=== PATIENT | male | born 1980 | race Caucasian/White ===

== ENCOUNTER 2021-05-03 14:48 | Emergency (ER) | payer SELFPAY ==
--- NOTE | ~2021-05-03 | XR_ITS ---
EXAMINATION: XR chest 2V DATE: 05/03/2021 15:17 INDICATION: Cough and chest pain TECHNIQUE: frontal and lateral views of the chest were obtained. COMPARISON: None FINDINGS: A few subcentimeter nodular opacities in the right mid to upper lung zone, not definitively calcified . No pulmonary edema, pleural effusion or pneumothorax. The cardiomediastinal silhouette is normal. V isualized bones and soft tissues are unremarkable. IMPRESSION: 1. A few small nodular opacities at the right mid to upper lung zone. Given the provided history of h eavy smoking would consider follow-up chest CT for further evaluation. Reviewed, dictated and finalized at location A. SCIENCES MANAGER IMPRESSION: 1. A few small nodular opacities at the right mid to upper lung zone. Given the provided history of heavy smoking would consider follow-up chest CT for furthe r evaluation.
[2021-05-03 15:00] VITALS: BP 143/91; PULSE 72; RESP 18; TEMP 36.6; O2SAT 100
--- NOTE | 2021-05-03 15:00 | ECG_ITS ---
Measurements Intervals [place] Rate: 76 P: 68 NC: 166 QRS: 12 QRSD: 102 T: 30 QT: 371 QTc: 418 Interpretive Statements SINUS RHYTHM MINIMAL Q WAVES- HIGH LATERAL LEADS BORDERLINE ECG Electronically Signed On 05-03-2021 15:10:56 SOLIDS CONTROL TECHNICIAN by Tyler Gutierrez D.O.
--- NOTE | 2021-05-03 15:20 | ED.CHESTPAIN ---
HPI - Chest Pain General Chief Complaint: Chest Pain Stated Complaint: mid area chest pain Time Seen by Provider: 05/03/21 15:10 Source: patient, family and RN notes reviewed Mode of arrival: ambulatory Limitations: no limitations History of Present Illness HPI narrative: Jef is a 41-year-old male patient who ambulated into the [facility] accompanied by his family. Patient states he had an onset of chest pain rating it 5/ 10 midmorning today. Patient states the pain is crushing. Patient states he is always shortof breath and is not experiencing any increase in shortness of breath. patient smokes 1.5 packs/day. Patient states he has pain going down his left arm at times. Patient currently has no pain in his left arm. Patient has had episodes of dizziness at least weekly. Patient has a history of chest pain. Patient also states that he he has heartburn almost daily and takes an [id number] medicine for that he is not sure what the medication is. Patient states he is on a baby aspirin 81 mg daily. Patient states he was put on that years ago for his chest pain/irregular heart rhythm.. Patient has never followed up for further evaluation of the chest pain. Patient has been seen in [facility] as before for chest pain and did not follow-up with her primary care afterwards for evaluation. Patient does have a history of hypertension and should be on hypertension medicationns but he has not followed up. Patient also states he has a history of anxiety. Patient did start at the ER. patient is having increased stress in his life. Patient states he is going through a divorce right now and has increased stress. Related Data Home Medications Medication Instructions Recorded Confirmed No Home Medications 05/03/21 05/03/21 Allergies Allergy/AdvReac Type Severity Reaction Status Date / Time No Known Allergies Allergy Mild Verified 05/03/21 15:50 Review of Systems Review of Systems: CONSTITUTIONAL: Denies body aches, fever, chills, or sweats. EYES: Denies visual changes, redness, or discharge. ENT: Denies rhinorrhea, congestion, sore throat, or otalgia. CARDIOVASCULAR: + chest pain, palpitations, denies edema. RESPIRATORY: Denies cough or dyspnea+ SOB GASTROINTESTINAL: Denies abdominal pain, nausea, vomiting, or diarrhea. GENITOURINARY: Denies dysuria or hematuria. SKIN: Denies rash, itching, or wounds. MUSCULOSKELETAL: Denies back pain, joint pain, or myalgia. NEUROLOGIC: Denies headache, numbness, tingling, or weakness. PSYCH: Denies depression + anxiety. All systems reviewed & are unremarkable except as noted in HPI and below PMFSH Comments At time of signature, I have reviewed and agree with nursing past medical, surgical, social and family history unless otherwise noted. Please see nursing chart for further information. There is no relevant family history pertinent to the presenting complaint Exam Narrative: GENERAL: Well-appearing, over -nourished, and in no acute distress. HEAD: Normocephalic, atraumatic. EYES: EOMI. No redness or drainage. Conjunctivae normal. ENT: Mucous membranes pink and moist. Nares clear. No rhinorrhea. NECK: Normal AROM. Supple. No lymphadenopathy. CHEST: No respiratory distress. Clear to auscultation. HEART: Regular rate and rhythm. No murmur appreciated. Normal peripheral pulses. ABDOMEN: Soft, nontender, nondistended, normal active bowel sounds. MUSCULOSKELETAL: No bony tenderness, bilateral shoulder exam unremarkable, Normal ROM. EXTREMITIES: Normal range of motion. No edema. SKIN: Warm, dry, no rash. Capillary refill normal. Normal skin turgor. NEURO: No focal deficits. Alert and oriented x3. Gait steady. PSYCH: Normal affect. No signs of depression, appears anxious. Course Vital Signs Vital signs: Vital Signs Temperature 36.6 C 05/03/21 15:00 Pulse Rate 72 05/03/21 15:00 Respiratory Rate 18 05/03/21 15:00 Blood Pressure 143/91 H 05/03/21 15:00 Pul
[2021-05-03] MEDS: ASPIRIN 81 MG CHEWABLE TABLET 243 MG PO (15:23)
== END 2021-05-03 15:47 | disposition short-term general hospital (02) ==
PROVIDERS: Emergency Provider Nurse Practitioner Family
DX: R07.89 Other chest pain (principal); K21.9 Gastro-esophageal reflux disease without esophagitis
CPT/HCPCS: 71046; 93005; 99213; A9270; G0463

== ENCOUNTER 2021-05-03 16:04 | Emergency (ER) | payer SELFPAY ==
--- NOTE | ~2021-05-03 | XR_ITS ---
EXAMINATION: XR chest 2V DATE: 05/03/2021 17:03 INDICATION: Chest pain TECHNIQUE: PA and lateral views of the chest were obtained. COMPARISON: Chest radiograph dated 05/03/2021 at 3:15 PM FINDINGS: Residual approximate 7 mm relatively well-defined nodular opacity at the lateral right midlung zone m ost likely sequela of old granulomatous disease. The additional small nodular opacity seen on the adin or radiograph are no longer visualized and likely represented superimposition of rib and vascular sha dows. No new airspace opacities, pulmonary edema, pleural effusion or pneumothorax. The cardiomediast inal silhouette is normal. Visualized bones and soft tissues are unremarkable. IMPRESSION: 1. No acute cardiopulmonary disease. 2. Persistent 7 mm nodular opacity at the lateral right midlung zone which given the conspicuity rela tive to size is likely calcified sequela of old granulomatous disease. Reviewed, dictated and finalized at location A. ER MIXER IMPRESSION: 1. No acute cardiopulmonary disease. 2. Persistent 7 mm nodular opacity at the lateral right midlung zone which give n the conspicuity relative to size is likely calcified sequela of old granuloma tous disease.
[2021-05-03 16:20] VITALS: BP 155/77; PULSE 71; RESP 16; TEMP 36.4; O2SAT 100
--- NOTE | 2021-05-03 16:20 | ECG_ITS ---
Measurements Intervals [place] Rate: 73 P: 71 IN: 165 QRS: 14 QRSD: 100 T: 47 QT: 379 QTc: 419 Interpretive Statements SINUS RHYTHM BASELINE ARTIFACT- I, II, AVR NORMAL ECG Electronically Signed On 05-03-2021 20:06:58 LICENSED REACTOR OPERATOR by Tyler Gutierrez D.O.
[2021-05-03 16:59] LABS: Basophils Absolute Auto 0.1 K/mm3 (0.0-0.1); Basophils Percent Auto 0.5 % (0.2-1.2); Eosinophils Absolute Auto 0.2 K/mm3 (0-0.3); Eosinophils Percent Auto 1.6 % (0-4.4); Hematocrit 47.7 % (42.0-52.0); Immature Granulocyte Absolute 0.03 K/mm3 (0.00-0.031); Immature Granulocyte Percent A 0.3 % (0-0.5); Lymphocytes Absolute Auto 2.94 K/mm3 (0.9-3.2); Lymphocytes Percent Auto 31.6 % (18.3-44.2); Mean Corpuscular HGB Conc 33.5 g/dl (32-36); Mean Corpuscular Hemoglobin 31.9 pg (26-34); Mean Platelet Volume 11.3 fl (7.4-10.4); Monocytes Percent Auto 10.6 % (2.6-8.5); Neutrophils Absolute Auto 5.1 K/mm3 (1.3-6.7); Neutrophils Percent Auto 55.4 % (45.5-73.1); Platelet Count Result 199 k/mm3 (150-375); Red Blood Count 5.02 M/mm3 (4.6-6.20); Red Cell Distribution Width 13.1 % (11.5-14.5); White Blood Count 9.3 K/mm3 (4.5-10.0)
[2021-05-03 17:09] LABS: Partial Thromboplastin Time 28.6 SECONDS (22.3-36.8); Prothrombin Time 12.8 Seconds (11.1-14.7)
[2021-05-03 17:20] LABS: Alanine Aminotransferase 37 U/L (4-50); Albumin Level 4.3 g/dL (3.5-5.1); Alkaline Phosphatase 97 U/L (38-126); Anion Gap 8 mmol/L (8-16); Aspartate Amino Transferase 29 U/L (17-59); Bilirubin,Total 0.6 mg/dL (0.2-1.3); Blood Urea Nitrogen 14 mg/dL (9-20); Calcium 9.2 mg/dL (8.4-10.2); Carbon Dioxide 24 mmol/L (22-30); Chloride 105 mmol/L (98-107); Estimated CRCL calculation 124 ml/min; Estimated Glomerular Filt Rate > 60; Glucose 98 mg/dL (65-110); Lipase 61 U/L (23-300); Potassium 3.8 mmol/L (3.4-5.0); Sodium 137 mmol/L (137-145)
[2021-05-03 17:32] LABS: Troponin I < 0.012 ng/mL (0.000-0.034)
[2021-05-03 19:11] VITALS: BP 139/67; PULSE 69; RESP 11; O2SAT 99
--- NOTE | 2021-05-03 19:11 | ED.CHESTPAIN ---
HPI - Chest Pain General Chief Complaint: Chest Pain Stated Complaint: CHEST PAIN Time Seen by Provider: 05/03/21 18:40 Source: patient and RN notes reviewed Mode of arrival: ambulatory Limitations: no limitations History of Present Illness HPI narrative: This is a 41 year old male smoker who presents for evaluation of midsternal chest tightness. Patient reports he has been having daily midsternal chest tightness for years. He states this morning he developed midsternal chest tightness and he also had pain that radiates down his right arm. His tightness has been constant and he is unaware of any exacerbating factors. He denies associated nausea, vomiting, diaphoresis, dizziness . He reports chronic wheezing and shortness of breath due to his smoking. He has never truly had an assessment of his pain in years. Today he states his ex just convinced him to get evaluated but his symptoms are not as severe as in the past. His tightness today occurred while he was at rest, and he denies his pain being worse with exertion. Onset (ago): year(s) Onset: during rest Pain radiation: right arm Quality: tightness Relieving factors: nothing Exacerbating factors: nothing Risk Factors Coronary artery disease risk factors: smoking history Related Data Allergies Allergy/AdvReac Type Severity Reaction Status Date / Time No Known Allergies Allergy Mild Verified 05/03/21 15:50 Review of Systems Review of Systems: All systems reviewed & are unremarkable except as noted in HPI and below PMFSH Past Medical History Medical History (Updated 05/03/21 @ 20:12 by Trisha Toledo MD) Patient denies medical problems Social History Social History (Updated 05/03/21 @ 19:22 by Trisha Toledo MD) Smoking status: Current every day smoker Alcohol intake: never Substance use: never Exam Const: General: no acute distress and alert Orientation/consciousness: patient oriented x3 Eyes: EOM: EOMs intact bilaterally Chest: Chest palpation & inspection: normal inspection of the chest Resp: Effort & Inspection: normal respiratory effort Auscultation: clear to auscultation bilaterally and diminished lung sounds Cardio: Rate: regular rate Rhythm: regular rhythm Heart sounds: no murmurs GI: GI Palp: Yes Soft to palpation, No Tenderness to palpation present (GI) and No Guarding due to palpation present (GI) Auscultation: normal bowel sounds Skin: General skin exam: normal color Rashes: no rashes Neuro: General: patient oriented x3, moves all extremities and CN's II-XI intact bilaterally Extrem: General: normal to inspection Psych: Mental Status: mental status grossly normal Affect: normal affect Course Reevaluation(s) Reevaluation #1: PAtient states his tightness is improved with albuterol. Patient's symptoms likely related to anxiety or COPD/bronchitis. His symptoms are not anginal but he will need to follow up for further evaluation. Patient is eager for discharge and states he is ready to be discharged home. I stressed to stop smoking and follow up with primary care provider. Date: 05/03/21 Time: 20:12 Vital Signs Vital signs: Vital Signs Temperature 97.5 F L 05/03/21 16:20 Pulse Rate 71 05/03/21 16:20 Respiratory Rate 16 05/03/21 16:20 Blood Pressure 155/77 H 05/03/21 16:20 Pulse Oximetry 100 05/03/21 16:20 Temperature 97.5 F L 05/03/21 16:20 Pulse Rate 72 05/03/21 20:31 Respiratory Rate 12 05/03/21 20:31 Blood Pressure 147/88 H 05/03/21 20:31 Pulse Oximetry 100 05/03/21 20:31 MDM - Chest Pain Lab Data Attestation: I reviewed the patient's lab results. Result diagrams: 05/03/21 16:35 05/03/21 16:35 Labs: Lab Results 05/03/21 05/03/21 05/03/21 Range/Units 16:35 16:35 16:35 WBC 9.3 (4.5-10.0) K/mm3 RBC 5.02 (4.6-6.20) M/mm3 Hgb 16.0 (14.0-18.0) g/dL Hct 47.7 (42.0-52.0) % MCV 95.0 (80-100) fl MCH 31.
[2021-05-03] MEDS: ALBUTEROL SULFATE (*SP) AEROSOL 1 PUFF 4 PUFF INHALATION (19:20)
[2021-05-03 19:22] VITALS: PULSE 76; RESP 12; O2SAT 100
[2021-05-03 19:37] LABS: D Dimer 0.27 ug/mL (<0.48)
[2021-05-03 20:09] LABS: Troponin I < 0.012 ng/mL (0.000-0.034)
[2021-05-03 20:31] VITALS: BP 147/88; PULSE 72; RESP 12; O2SAT 100
== END 2021-05-03 20:33 | disposition home or self-care (01) ==
PROVIDERS: Emergency Medicine; Emergency Provider General Practice
DX: R07.89 Other chest pain (principal); F17.200 Nicotine dependence, unspecified, uncomplicated; R91.1 Solitary pulmonary nodule
CPT/HCPCS: 36415; 71046; 80053; 83690; 84484; 85025; 85380; 85610; 85730; 93005; 99284; A9270

== ENCOUNTER 2023-06-06 10:41 | Emergency (ER) | payer OTHER, SELFPAY ==
--- NOTE | 2023-06-06 10:45 | ED.URI ---
HPI - URI/Sore Throat General Chief Complaint: Upper Respiratory Infection Stated Complaint: sorethroat Time Seen by Provider: 06/06/23 10:45 Source: patient Mode of arrival: ambulatory Limitations: no limitations History of Present Illness HPI Narrative: Mj is a 43-year-old male patient presenting to the clinic today with complaints of cough, congestion, body aches, chills, and sore throat times 2 days. He reports no known fever. MD elicited complaint: sore throat and nasal congestion Related Data Allergies Allergy/AdvReac Type Severity Reaction Status Date / Time No Known Allergies Allergy Mild Verified 06/06/23 11:13 Review of Systems Review of Systems: Pertinent positives per HPI. Patient denies any fever, rash, headache, visual changes, dizziness, shortness of breath, chest pain, palpitations, nausea, vomiting, diarrhea, constipation, abdominal pain, or any urinary issues. [facility] Past Medical History Medical History Patient denies medical problems Social History Social History Smoking status: Current every day smoker Alcohol intake: never Substance use: never Comments At the time of my signature, I reviewed and agree with the nursing past medical, surgical, social, and family history. There is no relevant family history pertinent to the patient complaint. Exam Narrative: General: Well-developed, well nourished, in no apparent distress Head: Normocephalic, atraumatic Eyes: Pupils equally round and reactive to light bilaterally, EOM intact, sclera and conjunctive clear, no discharge, lids normal Ears: TMs intact and clear, ear canals clear, no drainage, grossly hearing normal. Nose: Nares patent, clear discharge, no inflammation, no sinus tenderness. Mouth: Oral pharynx red with bilateral tonsillar enlargement without lesions or masses, good dentition, MMM. Neck: Supple, trachea midline, enlargement of anterior cervical nodes, no thyroid masses or goiter palpable. Cardio: Regular rate and rhythm, s1 and s2 normal, no murmur appreciated. Resp: Clear to auscultation bilaterally, no rhonchi, rales, wheezing or rubs Course Course Emergency Course: Portions of this record may have been created with voice recognition software. Level of Care: [facility] Visit Vital Signs Vital signs: Vital signs reviewed MDM - URI/Sore Throat MDM Narrative Medical decision making narrative: At the time of visit patient is resting comfortably on the exam table. Patient appears to be nontoxic. COVID, influenza, and strep test were completed. Strep test was positive. COVID and influenza testing was negative. Prescription for amoxicillin was sent to the pharmacy. Supportive measures were discussed with the patient and they voiced understanding discharge instructions and agrees to treatment plan. Return precautions reviewed Differential Diagnosis Differential diagnosis: Likely upper respiratory infection, otitis media, sinusitis, viral infection, bronchitis, influenza, pharyngitis and other (COVID) Discharge Plan Discharge Clinical Impression: Acute streptococcal pharyngitis Patient Disposition: Home, Self-Care Condition: Stable Instructions: Antibiotic Form, Strep Throat (ED) Additional Instructions: Strep test was positive in the clinic today. COVID and influenza testing was negative in the clinic today Change your toothbrush in 24 hours after initiation of the antibiotic Take prescription medications only as prescribed-amoxicillin Increase fluids and stay well hydrated Tylenol/motrin for pain/fever Flonase and OTC antihistamines as directed Vicks vapor rub to open sinuses Sinus rinses for congestion Cepacol spray, cough drops, throat lozenges, warm tea with honey/lemon, gargle salt water to soothe throat BRAT diet for diarrhea Clear liquids x 24
[2023-06-06 11:04] VITALS: BP 149/77; PULSE 90; RESP 18; TEMP 37; O2SAT 99
== END 2023-06-06 11:16 | disposition home or self-care (01) ==
PROVIDERS: Emergency Provider Nurse Practitioner Family
DX: J02.0 Streptococcal pharyngitis (principal); F17.200 Nicotine dependence, unspecified, uncomplicated; Z20.822 Contact with and (suspected) exposure to COVID-19
CPT/HCPCS: 87426; 87804; 87880; 99213; C9803; G0463